=== PATIENT | female | born 1980 | race American Indian/Alaskan Native ===

== ENCOUNTER 2019-01-22 15:35 | Emergency (ER) | payer OTHER ==
--- NOTE | 2019-01-22 15:55 | Emergency Department Report ---
Chief Complaint: Abdominal Pain Stated Complaint: CRAMPING/8 WKS PREG Time Seen by Provider: 01/22/19 15:53 - HPI History of Present Illness: pt presents with suprapubic cramping that began this morning has vaginal spotting states she has constipation x 2 days, pain with BM pt saw [facility] in [place], states she is 8 weeks , has not had US no dysuria /P:0/A:5 expected due date: Aug 23, 2019 no PMHx takes reglan MSE screening note: Focused history and physical exam performed. Due to findings the following was ordered: labs, abo/rh, hcg quant, UA, OB US ED Disposition for MSE Condition: Stable Instructions: Abdominal Pain (ED)
[2019-01-22 16:18] LABS: Basophils % (Auto) 0.3 % (0.0-1.8); Eosinophils # (Auto) 0.1 K/mm3 (0.0-0.4); Eosinophils % (Auto) 0.9 % (0.0-4.3); Hematocrit 36.9 % (30.3-42.9); Hemoglobin 12.3 gm/dl (10.1-14.3); Lymphocytes # (Auto) 2.4 K/mm3 (1.2-5.4); Lymphocytes % (Auto) 29.7 % (13.4-35.0); Mean Corpuscular HGB Conc 33 % (30-34); Mean Corpuscular Volume 84 fl (79-97); Monocytes # (Auto) 0.6 K/mm3 (0.0-0.8); Monocytes % (Auto) 7.2 % (0.0-7.3); Platelet Count 184 K/mm3 (140-440); Red Blood Count 4.41 M/mm3 (3.65-5.03); Red Cell Distribution Width 13.3 % (13.2-15.2)
[2019-01-22 16:44] LABS: BUN/Creatinine Ratio 12; Blood Urea Nitrogen 7 mg/dL (7-17); Calcium 9.6 mg/dL (8.4-10.2); Hemolysis Index 47
[2019-01-22 18:43] LABS: Bilirubin,Urine NEG (Negative); Blood,Urine NEG (Negative); Color,Urine Yellow (Yellow); Mucus,Urine FEW /HPF; Protein,Urine <15 mg/dL mg/dL (Negative); RBC,Urine < 1.0 /HPF (0.0-6.0); Urobilinogen,Urine < 2.0 mg/dL (<2.0)
--- NOTE | 2019-01-22 18:45 | Ultrasound Report ---
PROCEDURE: Transabdominal obstetrical ultrasound. TECHNIQUE: Real-time transabdominal sonography of the uterus, placenta, amniotic fluid, adnexa, and fetus was performed with image documentation. Measurements were obtained to determine age/size. M-mode Doppler was used to document heartbeat. ADDITIONAL GESTATION: None. HISTORY: 8 weeks , having vaginal spotting. COMPARISONS: None. FINDINGS: The uterus measures 11.9 cm x 8.8 cm x 8.8 cm. There is a hypoechoic mass in the anterior portion of the uterus. This measures 4.3 cm x 3.3 cm in cross-section. It is consistent with a uterine leiomyoma . There is an intrauterine gestational sac. A pole is present. The crown-rump length measuremen t is 3.4 cm. This indicates a menstrual age of 10 weeks 2 days. Cardiac activity is documented at 176 bpm. There are no signs of uterine hemorrhage. The left ovary appears normal. The right ovary is not visualized. IMPRESSION: Single viable intrauterine with a menstrual age of 10 weeks 2 days. Uterine lei omyoma. This document is electronically signed by Elver Dupree MD., January 22 2019 06:43:27 PM ET
--- NOTE | 2019-01-22 18:50 | Ultrasound Report ---
PROCEDURE: Transvaginal obstetrical ultrasound. TECHNIQUE: Real-time transvaginal sonography of the uterus, placenta, amniotic fluid, adnexa, and fe tus was performed with image documentation. Measurements were obtained to determine age/size. M -mode Doppler was used to document heartbeat. HISTORY: 8 weeks preg, having vaginal spotting . COMPARISONS: None. FINDINGS: There is a focal mass in the anterior portion of the uterus with predominantly hypoechogenicity. This measures 3.6 cm x 3.7 cm in cross-section. It is consistent with a uterine leiomyoma. There is an in trauterine gestational sac. There are no signs of uterine hemorrhage. There is a pole present w ith a crown-rump length measurement of 3.45 cm. This indicates a menstrual age of 10 weeks 2 days. Ca rdiac activity is documented at 174 bpm. The estimated date of confinement is 08/18/2019. Both ovaries appear normal in size. IMPRESSION: Viable intrauterine with a menstrual age of 10 weeks 2 days. This document is electronically signed by Elver Dupree MD., January 22 2019 06:48:18 PM ET
--- NOTE | 2019-01-22 19:11 | Emergency Department Report ---
ED Abdominal Pain HPI - General Chief Complaint: Abdominal Pain Stated Complaint: CRAMPING/8 WKS PREG Time Seen by Provider: 01/22/19 15:53 Source: patient Mode of arrival: Ambulatory Limitations: No Limitations - History of Present Illness Initial Comments: 39-year-old -[place] female presents to the emergency room for abdominal cramps since 10 AM today. Patient reports light spotting that she sees on the toilet paper of light pink. Patient states she is 8 weeks . Last menstrual period she believes was 11/11/2018. Patient reports that the cramps. Now but she just feels pressure. Patient is 6 para 0 is taken nothing f or pain. Patient reports that the current medications as Reglan and vitamins. She has no known drug allergies no past medical history no surgical history. Patient reports she is here visiting. Complaint: abdominal pain -: This morning Time: 10:00 Location: suprapubic Severity scale (0 -10): 7 Quality: cramping Improves With: nothing Worsens With: nothing - Related Data LMP Date: 11/11/18 Previous Rx's Medication Instructions Recorded Last Taken Type Polyethylene Glycol 3350 [Miralax 17 gm PO QDAY #1 box 01/22/19 Unknown Rx 3350] Allergies Allergy/AdvReac Type Severity Reaction Status Date / Time No Known Allergies Allergy Verified 01/22/19 15:37 ED Review of Systems ROS: Stated complaint: CRAMPING/8 WKS PREG Other details as noted in HPI ED Past Medical Hx - Past Medical History Previous Medical History?: No - Surgical History Past Surgical History?: No - Social History Smoking Status: Never Smoker Substance Use Type: None - Medications Home Medications: Home Medications Medication Instructions Recorded Confirmed Last Taken Type Polyethylene Glycol 3350 [Miralax 17 gm PO QDAY #1 box 01/22/19 Unknown Rx 3350] ED Physical Exam - General Limitations: No Limitations General appearance: alert, in no apparent distress - Head Head exam: Present: atraumatic, normocephalic - Eye Eye exam: Present: normal appearance - ENT ENT exam: Present: mucous membranes moist - Respiratory Respiratory exam: Present: normal lung sounds bilaterally. Absent: respiratory distress - Cardiovascular Cardiovascular Exam: Present: regular rate, normal rhythm. Absent: systolic murmur, diastolic murmur, rubs, gallop - GI/Abdominal GI/Abdominal exam: Present: soft, normal bowel sounds. Absent: distended, tenderness, guarding, rebound - Extremities Exam Extremities exam: Present: normal inspection, full ROM - Back Exam Back exam: Present: normal inspection, full ROM - Neurological Exam Neurological exam: Present: alert, oriented X3 - Psychiatric Psychiatric exam: Present: normal affect, normal mood - Skin Skin exam: Present: warm, dry, intact, normal color. Absent: rash ED Course Vital Signs 01/22/19 15:53 Temperature 98.7 F Pulse Rate 70 Respiratory 18 Rate Blood Pressure 117/66 O2 Sat by Pulse 99 Oximetry ED Medical Decision Making - Lab Data Result diagrams: 01/22/19 16:00 01/22/19 16:00 - Radiology Data Radiology results: report reviewed Patient: BRITANY HUNTLEY MR#: [id number] : 1980 Acct:[id number] Age/Sex: 39 / F ADM Date: 01/22/19 Loc: ED Attending Dr: Ordering Physician: HEATH TRIMBLE Date of Service: 01/22/19 Procedure(s): US OB transvaginal Accession Number(s): [id number] cc: HEATH TRIMBLE PROCEDURE: Transvaginal obstetrical ultrasound. TECHNIQUE: Real-time transvaginal sonography of the uterus, placenta, amniotic f luid, adnexa, and fetus was performed with image documentation. Measurements were obtained to determine age/size. M-mode Doppler was used to document heartbeat. HISTORY: 8 weeks preg, having vaginal spotting . COMPARISONS: None. FINDINGS: There is a focal mass in the anterior portion of the uterus with predominantly hypoechogenicity. This measures 3.6 cm x 3.7 cm in cross-section. It is consistent with a uterine leiomyoma. There is an intrauterine gestational sac. There are no signs of uterine hemorrhage. There is a pole present with a crown-rump length measurement of 3.45 cm. This indicates a menstrual age of 10 weeks 2 days. Cardiac activity is documented at 174 bpm. The estimated date of confinement is 08/18/2019. Both ovaries appear normal in size. IMPRESSION: Viable intrauterine with a menstrual age of 10 weeks 2 days. This document is electronically signed by Elver Michelle MD., January 22 2019 06:48:18 PM ET Transcribed By: MRM Dictated By: ELVER MICHELLE MD Electronically Authenticated By: ELVER MICHELLE MD Signed Date/Time: 01/22/191849 DD/ 56 TD/TT: 01/22/191756 - Medical Decision Making Patient has been evaluated up with his provider faster. Labs ultrasound ordered. Patient is 10 weeks intrauterine gestation. Patient will be discharged to follow-up with [facility]. Patient can have Tylenol only for cramps. Critical care attestation.: If time is entered above; I have spent that time in minutes in the direct care of this critically ill patient, excluding procedure time. ED Disposition Clinical Impression: Vaginal spotting, Constipation Disposition: DC-01 TO HOME OR SELFCARE Is pt being admited?: No Does the pt Need Aspirin: No Condition: Stable Instructions: Abdominal Pain (ED) Additional Instructions: Please follow-up with your [facility] provider area take MiraLAX as needed for constipation. Please incorporate high fiber diet and increase her water intake. Increase her sodium intake as sure sodium was low. Prescriptions: Polyethylene Glycol 3350 [Miralax 3350] 17 gm PO QDAY #1 box Referrals: EMELINA VILLEGAS MD [Primary Care Provider] - 3-5 Days
[2019-01-23 19:16] VITALS: BP 117/66
== END 2019-01-22 19:30 | disposition home or self-care (01) ==
LOC: ED 15:35
DX: O26.851 Spotting complicating pregnancy, first trimester (principal); O99.611 Diseases of the digestive system complicating pregnancy, first trimester; K59.00 Constipation, unspecified; Z3A.08 8 weeks gestation of pregnancy
CPT/HCPCS: 36415; 76801; 76817; 80048; 81001; 84702; 85025; 86900; 86901; 99284